=== PATIENT | female | born 1980 | race Caucasian/White ===

== ENCOUNTER → 2018-02-01 10:53 | Outpatient (CLI) | payer OTHER, SELFPAY ==
[2018-02-01 11:31] LABS: Add Manual Diff / Slide Review NO; Basophils Percent Auto 0.7 % (0-2); Eosinophils Percent Auto 1.7 % (2-4); Hematocrit 40.3 % (36-46); Hemoglobin 13.8 g/dL (12.0-16.0); Lymphocytes Percent Auto 25.6 % (25-40); Mean Corpuscular HGB Conc 34.3 % (30-36); Mean Corpuscular Hemoglobin 30.4 PG (26-34); Mean Corpuscular Volume 88.4 fL (80-100); Monocytes Percent Auto 7.2 % (3-14); Neutrophils Absolute Auto 4600 /uL (3000-5900); Neutrophils Percent Auto 64.8 % (50-75); Platelet Count 313 X10^3/uL (150-400); Red Blood Cell Count 4.55 X10^6/uL (4.0-5.2); Red Cell Distribution Width 12.5 % (11.6-14.8); White Blood Cell Count 7.1 X10^3/uL (4.5-11.0)
[2018-02-01 11:44] LABS: Alanine Aminotransferase 33 IU/L (9-52); Albumin 4.2 g/dL (3.5-5.0); Albumin Globulin Ratio 1.1 (1.0-2.8); Alkaline Phosphatase 98 U/L (38-126); Aspartate Aminotransferase 26 IU/L (14-36); BUN Creatinine Ratio 18.3 (6-22); Bilirubin Total 0.6 mg/dL (0.2-1.3); Calcium 9.6 mg/dL (8.4-10.2); Estimated Glomerular Filt Rate > 60.0 mL/min (>60); Globulin 3.7 g/dL (1.7-4.1); Glucose 102 mg/dL (70-100); HEMOLYSIS < 15 (0-50); Potassium 4.3 mmol/L (3.4-5.1); Sodium 139 mmol/L (137-145); Total Protein 7.9 g/dL (6.3-8.2)
[2018-02-01 12:32] LABS: TSH w/ Reflex to FT4 0.92 uIU/mL (0.47-4.68)
== END ==
PROVIDERS: PCP Family Medicine; Visit Provider Family Medicine
DX: I10 Essential (primary) hypertension (principal); R63.5 Abnormal weight gain
CPT/HCPCS: 36415; 80053; 84443; 85025

== ENCOUNTER 2018-03-31 20:41 | Emergency (ER) | payer OTHER, SELFPAY ==
--- NOTE | 2018-03-31 20:51 | PC.NURSE ---
pt calm and cooperative supine on stretcher. pt reports hx of ablation. denies sob or chest pain at this time. reports feeling a pounding chest.
[2018-03-31 20:52] VITALS: BP 137/76; PULSE 79; RESP 15; TEMP 36.7; O2SAT 99
--- NOTE | 2018-03-31 20:52 | ED.CHESTPAIN ---
HPI - Chest Pain General Chief Complaint: Chest Pain Stated Complaint: STATES HEAVY FAST HEART BEAT Time Seen by Provider: 03/31/18 20:52 Source: patient Mode of arrival: ambulatory Limitations: no limitations History of Present Illness HPI narrative: The patient developed chest heaviness and palpitations about 2 hr ago. She has a history of cardiac ablation at the age of 13. She has had issues with intermittent palpitations since then, but no pathologic diagnosis has been found despite Holters and other monitoring. She had an echo less than 2 years ago with no obvious pathology found. She describes her baseline heart rate as in the 50s. She is currently in the 80s. She has no headache, visual changes, or near syncopal type symptoms. She simply has chest discomfort. She does not smoke. She has morning coffee, but no additional coffee throughout the day or energy drinks. She has not been ill recently. She denies coughing. She denies hemoptysis. She has occasional peripheral edema, but no history of DVT. She denies dyspnea. Related Data Previous Rx's Medication Instructions Recorded bupropion HCl [Wellbutrin SR] 150 mg PO BID #60 tab 10/26/16 omeprazole 20 mg PO Q DAY #30 tab 10/26/16 metoprolol tartrate [Lopressor] 50 mg PO BID #60 tab 05/08/17 metoprolol tartrate [Lopressor] 50 mg PO BID #65 tab 05/23/17 azithromycin [Zithromax] 250 mg PO QDAY #6 tab 07/18/17 methylprednisolone 21 tab PO SEE INSTRUCTIONS #1 pac 07/18/17 spironolactone [Aldactone] 100 mg PO BID #180 tab 10/28/17 hydrochlorothiazide 25 mg tablet 25 mg PO DAILY #90 tab 01/31/18 potassium chloride 10 meq PO DAILY #30 tab 03/31/18 Allergies Allergy/AdvReac Type Severity Reaction Status Date / Time Sulfa (Sulfonamide Allergy Unknown Verified 03/31/18 21:16 Antibiotics) Review of Systems Review of Systems All systems reviewed & are unremarkable except as noted in HPI and below Constitutional Denies chills, Denies fever(s), Denies lethargy and Denies weakness ENT Ears, Nose, Mouth, and Throat: Denies change in voice, Denies vertigo, Denies dizziness, Denies neck pain and Denies sore throat Cardiovascular Reports chest pain, Denies syncope, Denies rapid heart rate, Reports irregular heart rhythm, Denies leg edema, Denies lightheadedness, Denies dyspnea and Denies dyspnea on exertion Respiratory Denies cough, Denies dyspnea, Denies dyspnea on exertion and Denies wheezing Gastrointestinal Gastrointestinal: Denies abdominal pain, Denies diarrhea, Denies nausea and Denies vomiting Musculoskeletal Denies joint swelling and Denies neck pain Integumentary/Breasts Denies erythema and Denies rash Neurologic Denies vertigo, Denies dizziness, Denies syncope and Denies weakness Allergic/Immunologic Denies wheezing [facility] Medical History Excess sun exposure (Chronic) Lower extremity edema (Chronic) Rosacea (01/02/16) Gastroesophageal reflux disease without esophagitis (Chronic 10/26/16) History of cardiac radiofrequency ablation (RFA) (Chronic 05/23/17) Surgical History History of cardiac radiofrequency ablation (RFA) Family History Mother Age: 67 Hypertension Cancer COPD (chronic obstructive pulmonary disease) Social History marital status: number of children: 3 household members: children lives independently: Yes occupational status: employed current occupational exposures/hazards: No Smoking Status: Never smoker Exam Initial Vital Signs Initial Vital Signs: Vital Signs Temperature 98.1 F 03/31/18 20:52 Pulse Rate 79 03/31/18 20:52 Respiratory Rate 15 03/31/18 20:52 Blood Pressure 137/76 H 03/31/18 20:52 Pulse Oximetry 99 03/31/18 20:52 Const General: cooperative and well developed Nutritional Appearance: well nourished Orientation: alert, awake and oriented x3 Eyes Conjunctivae: conjunctivae normal Neck Neck: No JVD Chest Chest: normal palpation of entire chest wall (mild left lateral rib tenderness) Resp Effort & Inspection: normal respiratory effort, able to speak in complete sentences, no respiratory distress and no use of accessory muscles Auscultation: clear to auscultation bilaterally, no rales, no rhonchi and no wheezes Cardio Rate: regular rate Rhythm: regular rhythm Heart Sounds: no click, no gallops, no murmurs and no rubs Pulses: normal peripheral pulses GI Inspection: non-distended Palpation: soft, no hepatosplenomegaly, No guarding, No pulsatile mass and No tender Auscultation: normal bowel sounds Skin General: no rashes or lesions noted, No jaundice and No petechiae Neuro General: alert, oriented x3 and no focal motor deficits Speech: speech normal Extrem General: no pedal edema, no calf tenderness and other (Normal lower extremity pulses.) Course Orders Ordered: ED Orders 03/31/18 21:19 Complete Blood Count AUTO DIFF Stat Comprehensive Metabolic Panel Stat D Dimer Stat Troponin & CK Cardiac Panel Stat Discontinued Medications Ibuprofen (Advil) 800 mg PO NOW ONE Stop: 03/31/18 21:05 Last Admin: 03/31/18 21:17 Dose: 800 mg Potassium Chloride (Potassium Chloride) 40 meq PO NOW ONE Stop: 03/31/18 22:32 Last Admin: 03/31/18 23:01 Dose: 40 meq Vital Signs - 8 hr 03/31/18 20:52 03/31/18 21:46 03/31/18 22:30 Temperature 98.1 F Pulse Rate 79 77 70 Respiratory Rate 15 25 H Blood Pressure [Right Arm] 137/76 H 115/60 115/83 H Pulse Oximetry 99 100 MDM - Chest Pain Lab Data Result diagrams: 03/31/18 21:19 03/31/18 21:19 Lab Results 03/31/18 03/31/18 03/31/18 Range/Units 21:19 21:19 21:19 WBC 11.8 H (4.5-11.0) X10^3/uL RBC 4.29 (4.0-5.2) X10^6/uL Hgb 12.8 (12.0-16.0) g/dL Hct 38.0 (36-46) % MCV 88.4 (80-100) fL MCH 29.8 (26-34) PG MCHC 33.7 (30-36) % RDW 13.1 (11.6-14.8) % Plt Count 287 (150-400) X10^3/uL Neut % (Auto) 75.4 H (50-75) % Lymph % (Auto) 17.9 L (25-40) % [place] % (Auto) 5.2 (3-14) % Eos % (Auto) 0.8 L (2-4) % Baso % (Auto) 0.7 (0-2) % Neut # (Auto) 8900 H (4547-2754) /uL D-Dimer 300 H (<230) ng/mL Sodium 138 (137-145) mmol/L Potassium 3.1 L (3.4-5.1) mmol/L Chloride 100 (98-107) mmol/L Carbon Dioxide 27 (22-32) mmol/L BUN 11 (7-17) mg/dL Creatinine 0.70 (0.52-1.04) mg/dL Estimated GFR > 60.0 (>60) mL/min BUN/Creatinine Ratio 15.7 (6-22) Glucose 142 H (70-100) mg/dL Calcium 9.7 (8.4-10.2) mg/dL Total Bilirubin 0.4 (0.2-1.3) mg/dL AST 30 (14-36) IU/L ALT 46 (9-52) IU/L Alkaline Phosphatase 81 (38-126) U/L Total Creatine Kinase 74 (30-135) U/L Troponin I < 0.012 (0.01-0.034) ng/mL Total Protein 7.4 (6.3-8.2) g/dL Albumin 4.0 (3.5-5.0) g/dL Globulin 3.4 (1.7-4.1) g/dL Albumin/Globulin Ratio 1.2 (1.0-2.8) ECG Data Attestation: I personally reviewed and interpreted this ECG as follows: (Normal sinus rhythm rate [address] T wave changes. All intervals are normal. No acute findings.) Discharge Plan Departure Patient Disposition: Home, Self-Care Clinical Impression: Hypokalemia, Heart palpitations Instructions: DI for Hypokalemia Activity Restrictions/Additional Instructions: I am going to prescribe a daily potassium supplement. I would also recommend a high potassium diet. If you have ongoing symptoms have your doctor recheck her potassium level. Return here as needed. Prescriptions: New potassium chloride 10 mEq tablet extended release 10 meq PO DAILY Qty: 30 RF: 0 No Action hydrochlorothiazide 25 mg tablet 25 mg PO DAILY Qty: 90 RF: 3 bupropion HCl [Wellbutrin SR] 150 MG tablet extended release 12 hr 150 mg PO BID Qty: 60 RF: 5 omeprazole 20 MG tablet,delayed release (DR/EC) 20 mg PO Q DAY Qty: 30 RF: 5 metoprolol tartrate [Lopressor] 50 MG tablet 50 mg PO BID Qty: 60 RF: 0 metoprolol tartrate [Lopressor] 50 MG tablet 50 mg PO BID Qty: 65 RF: 11 azithromycin [Zithromax] 250 MG tablet 250 mg PO QDAY Qty: 6 RF: 0 methylprednisolone 4 MG tablets,dose pack 21 tab PO SEE INSTRUCTIONS Qty: 1 RF: 0 spironolactone [Aldactone] 100 MG tablet 100 mg PO BID Qty: 180 RF: 1
[2018-03-31] MEDS: IBUPROFEN 400 MG TABLET 800 MG PO (21:17)
[2018-03-31 21:30] LABS: Add Manual Diff / Slide Review NO; Basophils Percent Auto 0.7 % (0-2); Eosinophils Percent Auto 0.8 % (2-4); Hemoglobin 12.8 g/dL (12.0-16.0); Lymphocytes Percent Auto 17.9 % (25-40); Mean Corpuscular HGB Conc 33.7 % (30-36); Mean Corpuscular Hemoglobin 29.8 PG (26-34); Mean Corpuscular Volume 88.4 fL (80-100); Monocytes Percent Auto 5.2 % (3-14); Neutrophils Absolute Auto 8900 /uL (3000-5900); Neutrophils Percent Auto 75.4 % (50-75); Platelet Count 287 X10^3/uL (150-400); Red Blood Cell Count 4.29 X10^6/uL (4.0-5.2); Red Cell Distribution Width 13.1 % (11.6-14.8); White Blood Cell Count 11.8 X10^3/uL (4.5-11.0)
[2018-03-31 21:38] LABS: D Dimer 300 ng/mL (<230)
[2018-03-31 21:39] LABS: Alanine Aminotransferase 46 IU/L (9-52); Albumin Globulin Ratio 1.2 (1.0-2.8); Alkaline Phosphatase 81 U/L (38-126); Aspartate Aminotransferase 30 IU/L (14-36); BUN Creatinine Ratio 15.7 (6-22); Bilirubin Total 0.4 mg/dL (0.2-1.3); Blood Urea Nitrogen 11 mg/dL (7-17); Calcium 9.7 mg/dL (8.4-10.2); Carbon Dioxide 27 mmol/L (22-32); Chloride 100 mmol/L (98-107); Creatine Kinase 74 U/L (30-135); Estimated Glomerular Filt Rate > 60.0 mL/min (>60); Globulin 3.4 g/dL (1.7-4.1); Glucose 142 mg/dL (70-100); HEMOLYSIS < 15 (0-50); Potassium 3.1 mmol/L (3.4-5.1); Sodium 138 mmol/L (137-145); Total Protein 7.4 g/dL (6.3-8.2)
[2018-03-31 21:46] VITALS: BP 115/60; PULSE 77; O2SAT 100
[2018-03-31 21:59] LABS: Troponin I < 0.012 ng/mL (0.01-0.034)
[2018-03-31 22:30] VITALS: BP 115/83; PULSE 70; RESP 25
[2018-03-31] MEDS: POTASSIUM CHLORIDE 20 MEQ/15 ML UDC 40 MEQ PO (23:01)
[2018-03-31 23:24] VITALS: BP 117/62; PULSE 66; RESP 16; O2SAT 100
== END 2018-03-31 23:32 | disposition home or self-care (01) ==
PROVIDERS: Emergency Provider Emergency Medicine; PCP Family Medicine
DX: E87.6 Hypokalemia (principal); R00.2 Palpitations
CPT/HCPCS: 80053; 82550; 82553; 84484; 85025; 85379; 93005; 99283; 99284

== ENCOUNTER → 2018-11-14 11:36 | Outpatient (CLI) | payer OTHER, SELFPAY ==
--- NOTE | 2018-11-14 11:39 | DI.MG.S_ITS ---
BILATERAL DIGITAL SCREENING MAMMOGRAM 3D/2D WITH CAD: 11/14/2018 CLINICAL: Baseline exam. Routine screening. No prior exams were available for comparison. There are scattered fibroglandular elements in both breasts. Current study was also evaluated with a Computer Aided Detection (CAD) system. No significant masses, calcifications, or other findings are seen in either breast. IMPRESSION: NEGATIVE There is no mammographic evidence of malignancy. A 1 year screening mammogram is recommended. This exam was interpreted at Station ID: [id number]. NOTE: For mammograms, a report in lay terms will be sent to the patient. Approximately 15% of breast malignancies will not be visualized mammographically. In the management of a palpable breast mass, a negative mammogram must not discourage biopsy of a clinically suspicious lesion. Electronically Signed By: Sandro woodson/alex:11/14/2018 12:33:36 letter sent: Normal Exam ACR BI-RADS Category 1: Negative 3341F
== END ==
PROVIDERS: PCP Student in an Organized Health Care Education/Training Program; Visit Provider Student in an Organized Health Care Education/Training Program
DX: Z12.31 Encounter for screening mammogram for malignant neoplasm of breast (principal)
CPT/HCPCS: 77063; 77067

== ENCOUNTER 2020-06-21 02:11 | Emergency (ER) | payer OTHER, SELFPAY ==
--- NOTE | 2020-06-21 02:13 | ED_ITS ---
HPI - Abdominal Pain General Chief Complaint: Abdominal Pain Stated Complaint: stomach pain nausea Time Seen by Provider: 06/21/20 02:13 Source: patient Mode of arrival: Ambulatory Limitations: no limitations History of Present Illness HPI narrative: 39-year-old female daily smoker with history of hypertension and GERD presents with a chief complaint of gradually worsening epigastric and left upper quadrant pain over the course of the day. She denies any provocation, palliation or radiation of her pain. She has had nausea and a few episodes of vomiting which did affect the severity of her pain at all. She is not dizzy nor weak or lightheaded. She denies any fever or chills. She denies any change in her diet or medications. She took an extra omeprazole this evening it did not help whatsoever. She states in some ways this feels like her reflux but she states this is more severe, it last longer and is in a slightly different region which makes her concerned that it is from something else. She denies any alcohol abuse and does not take NSAIDs MD complaint: abdominal pain Onset (ago): hour(s) Pain Consistency: constant Location: periumbilical and LUQ Severity: moderate Quality: cramping and aching Radiation: none Relieving factors: nothing Exacerbating factors: nothing Associated symptoms: nausea and vomiting Treatments prior to arrival: antacids Related Data Home Medications Medication Instructions Recorded Confirmed cetirizine 10 mg capsule 10 mg PO DAILY 01/30/19 01/06/20 Previous Rx's Medication Instructions Recorded citalopram 20 mg tablet 20 mg PO QDAY #90 tab 12/28/11 omeprazole 20 mg PO Q DAY #30 tab 10/26/16 metoprolol tartrate 50 mg tablet 50 mg PO BID #180 tab 12/17/19 cephalexin [Keflex] 500 mg PO QID 7 Days #28 cap 06/21/20 Allergies Allergy/AdvReac Type Severity Reaction Status Date / Time Sulfa (Sulfonamide Allergy Unknown Verified 01/06/20 09:55 Antibiotics) Review of Systems Constitutional Constitutional: Denies chills, Denies fatigue, Denies fever(s), Denies frequent falls, Denies lethargy and Denies weakness Eyes Eyes: Denies change in vision, Denies eye discharge, Denies irritation and Denies loss of vision ENT Ears, Nose, Mouth, and Throat: Denies change in voice, Denies dizziness, Denies neck pain, Denies sore throat and Denies throat swelling Cardiovascular Cardiovascular: Denies chest pain, Denies irregular heart rhythm, Denies lightheadedness, Denies palpitations, Denies dyspnea, Denies dyspnea on exertion and Denies orthopnea Respiratory Respiratory: Denies cough, Denies dyspnea, Denies dyspnea on exertion and Denies wheezing Gastrointestinal Gastrointestinal: Reports abdominal pain, Denies change in bowel habits, Denies diarrhea, Reports nausea and Reports vomiting Musculoskeletal Musculoskeletal: Denies neck pain and Denies numbness Integumentary/Breasts Skin/Breast: Denies pruritus, Denies erythema, Denies rash and Denies wounds Neurologic Neurologic: Denies behavioral changes, Denies confusion, Denies dizziness, Denies frequent falls, Denies loss of vision, Denies numbness and Denies weakness Psychiatric Psychiatric: Denies anxiety, Denies behavioral changes, Denies confusion, Denies depression, Denies homicidal ideation and Denies suicidal ideation Endocrine Endocrine: Denies fatigue, Denies flushing and Denies palpitations Hematologic/Lymphatic Hematologic/Lymphatic: Denies easy bruising Allergic/Immunologic Allergic/Immunologic: Denies urticaria, Denies throat swelling and Denies wheezing Patient History Medical History Acne (Chronic) Depression (Chronic) Excess sun exposure (Chronic) History of cardiac radiofrequency ablation (RFA) (Chronic 05/23/17) Hypertension (Chronic) Rosacea (Chronic 01/02/16) Surgical History History of cardiac radiofrequency ablation (RFA) (Resolved ~1994) Family History Mother Age: 70 Hypertension Cancer COPD (chronic obstructive pulmonary disease) Social History marital status: number of children: 3 household members: children lives independently: Yes occupational status: employed current occupational exposures/hazards: No Smoking Status: Never smoker alcohol intake: former Smoking Status: Never smoker Exam Narrative Exam Narrative: GENERAL: [39] year old patient appears stated age. Well- nourished, well-developed patient, in mild distress. HEAD: Atraumatic. Normocephalic. EYES: Pupils equal round and reactive. Extraocular motions intact. No scleral icterus. No injection or drainage. ENT: Nose without bleeding, purulent drainage. Throat without erythema, tonsillar hypertrophy or exudate. Airway patent. NECK: Trachea midline. Non tender CARDIOVASCULAR: Regular rate and rhythm without murmurs, gallops, or rubs. RESPIRATORY: Clear to auscultation. Breath sounds equal bilaterally. No wheezes, rales, or rhonchi. GASTROINTESTINAL: Abdomen soft, non-tender, nondistended. EXTREMITIES: No edema or joint tenderness. BACK: Nontender without deformity or crepitance. No flank tenderness. NEURO: AOx3. SKIN: No rash or erythema of visible areas Initial Vital Signs Initial Vital Signs: Vital Signs Temperature 98.1 F 06/21/20 02:20 Pulse Rate 82 06/21/20 02:20 Respiratory Rate 18 06/21/20 02:20 Blood Pressure 162/98 H 06/21/20 02:20 Pulse Oximetry 98 06/21/20 02:20 Course Course Course Narrative: Patient with significant epigastric pain improvement after taking the GI cocktail. Still some discomfort and left upper quadrant raising the question of the possibility that her UTIs actually an early pyelonephritis hence my decision to treat for a longer duration. Patient has had questions answered to her apparent satisfaction and understands her return precautions Orders Ordered: ED Orders 06/21/20 02:40 Complete Blood Count AUTO DIFF Stat Comprehensive Metabolic Panel Stat Lipase Stat 06/21/20 03:12 CT abdomen pelvis w con Stat 06/21/20 03:20 Urine Microscopic Stat 06/21/20 04:05 EKG-12 Lead Stat Discontinued Medications Cefazolin Sodium (Keflex 250 Mg Prepack) 1 bottle MISC SEEINSTR ONE Stop: 06/21/20 04:11 Al Hydrox/Mg Hydrox/Simethicone 20 ml/ Lidocaine HCl 15 ml 0 ml PO NOW ONE Stop: 06/21/20 03:12 Last Admin: 06/21/20 03:18 Dose: 35 ml Documented by: TERI Sodium Chloride (Normal Saline 0.9%) 1,000 mls @ 1,000 mls/hr IV BOLUS ONE Stop: 06/21/20 03:19 Last Infusion: 06/21/20 04:15 Dose: 0 mls/hr Documented by: Admin: 06/21/20 02:50 Dose: 1,000 mls/hr Documented by: TERI Vital Signs Vital signs: Vital Signs - 8 hr 06/21/20 02:20 06/21/20 02:41 06/21/20 03:00 Temperature 98.1 F Pulse Rate 82 69 63 Respiratory Rate 18 18 Blood Pressure 162/98 H 130/76 Pulse Oximetry 98 98 98 06/21/20 03:35 06/21/20 04:00 Temperature Pulse Rate 70 60 Respiratory Rate Blood Pressure 130/76 Pulse Oximetry 91 97 MDM - Abdominal Pain Lab Data Result diagrams: 06/21/20 02:40 06/21/20 02:40 Labs: Lab Results 06/21/20 06/21/20 06/21/20 Range/Units 02:40 02:40 03:20 WBC 10.6 (4.5-11.0) X10^3/uL RBC 4.37 (4.0-5.2) X10^6/uL Hgb 12.8 (12.0-16.0) g/dL Hct 38.6 (36-46) % MCV 88.3 (80-100) fL MCH 29.4 (26-34) PG MCHC 33.3 (30-36) % RDW 13.6 (11.6-14.8) % Plt Count 303 (150-400) X10^3/uL Neut % (Auto) 65.7 (50-75) % Lymph % (Auto) 23.5 L (25-40) % [place] % (Auto) 7.2 (3-14) % Eos % (Auto) 2.8 (2-4) % Baso % (Auto) 0.8 (0-2) % Neut # (Auto) 7000 (1616-5990) /uL Lymph # (Auto) 2500 (9950-4365) /uL [place] # (Auto) 800 (0-900) /uL Eos # (Auto) 300 (0-450) /uL Baso # (Auto) 100 (0-100) /uL Sodium 140 (137-145) mmol/L Potassium 3.4 (3.4-5.1) mmol/L Chloride 102 (98-107) mmol/L Carbon Dioxide 29 (22-32) mmol/L BUN 13 (7-17) mg/dL Creatinine 0.59 (0.52-1.04) mg/dL Estimated GFR > 60.0 (>60) mL/min BUN/Creatinine Ratio 22.0 (6-22) Glucose 130 H (70-100) mg/dL Calcium 9.8 (8.4-10.2) mg/dL Total Bilirubin 0.3 (0.2-1.3) mg/dL AST 29 (14-36) IU/L ALT 33 (<35) IU/L Alkaline Phosphatase 101 (38-126) U/L Total Protein 8.1 (6.3-8.2) g/dL Albumin 4.2 (3.5-5.0) g/dL Globulin 3.9 (1.7-4.1) g/dL Albumin/Globulin Ratio 1.1 (1.0-2.8) Lipase 111 (23-300) U/L Urine RBC 10-30/hpf H (0-5/HPF) Urine WBC 30-100/hpf H (0-5/HPF) Ur Squamous Epith Cells 10-30 /hpf H (0-5/HPF) Urine Bacteria Many (>30) H (None) Urine Mucus 2+ H (Negative) Ur Culture Indicated? Cult not indicated Point of care testing: Urine Dip Bedside Urine Glucose Negative Bedside Urine Bilirubin - Negative Bedside Urine Ketone - Negative Urine Specific [place] 1.030 Bedside Urine Occult Blood ++ Bedside Urine pH 6.0 Bedside Urine Protein - Negative Bedside Urine Urobilinogen - Negative Bedside Urine Nitrite - Negative Bedside Urine Leukocytes +/- [address] scan - abdomen/pelvis: Radiologist's Impression: No evidence of colitis, diverticulitis, or bowel obstruction, uropathy, or appendicitis Discharge Plan Departure Patient Disposition: Home Clinical Impression: Acute epigastric pain UTI (urinary tract infection) Qualifiers: Urinary tract infection type: acute pyelonephritis Qualified Code(s): N10 - Acute pyelonephritis Instructions: DI for Urinary Tract Infection (UTI), DI for Epigastric Pain Activity Restrictions/Additional Instructions: *You have been diagnosed with [ epigastric pain likely secondary to GERD and UTI with possible kidney involvement] *What to do: *Take medications as directed: Please take Omeprazole morning and night for the next week. A prescription for antibiotics was sent to [facility] *Follow up with your primary care provider in 2-3 days, call for an appointment. Let them know you were seen in the Emergency Department and that we ask that you be seen in follow up *Return to ER if you should have any new, worsening or concerning symptoms Prescriptions: New cephalexin [Keflex] 500 mg capsule 500 mg PO QID 7 Days Qty: 28 RF: 0 No Action omeprazole 20 MG tablet,delayed release (DR/EC) 20 mg PO Q DAY Qty: 30 RF: 5 metoprolol tartrate [Lopressor] 50 mg tablet 50 mg PO BID Qty: 180 RF: 1 Zyrtec 10 mg capsule 10 mg PO DAILY RF: 0 citalopram 20 mg tablet 20 mg PO QDAY Qty: 90 RF: 1 Referrals: Dennis Silva MD [Primary Care Provider] -
[2020-06-21 02:20] VITALS: BP 162/98; PULSE 82; RESP 18; TEMP 36.7; O2SAT 98; BMI 36.6
[2020-06-21 02:41] VITALS: PULSE 69; O2SAT 98
[2020-06-21] MEDS: SODIUM CHLORIDE 0.9% 1,000 ML 1000 ML IV (02:50)
[2020-06-21 02:52] LABS: Add Manual Diff / Slide Review NO; Basophils Absolute Auto 100 /uL (0-100); Basophils Percent Auto 0.8 % (0-2); Eosinophils Absolute Auto 300 /uL (0-450); Eosinophils Percent Auto 2.8 % (2-4); Hematocrit 38.6 % (36-46); Hemoglobin 12.8 g/dL (12.0-16.0); Lymphocytes Absolute Auto 2500 /uL (1100-4500); Lymphocytes Percent Auto 23.5 % (25-40); Mean Corpuscular HGB Conc 33.3 % (30-36); Mean Corpuscular Hemoglobin 29.4 PG (26-34); Mean Corpuscular Volume 88.3 fL (80-100); Monocytes Absolute Auto 800 /uL (0-900); Monocytes Percent Auto 7.2 % (3-14); Neutrophils Absolute Auto 7000 /uL (1500-7000); Neutrophils Percent Auto 65.7 % (50-75); Platelet Count 303 X10^3/uL (150-400); Red Blood Cell Count 4.37 X10^6/uL (4.0-5.2); Red Cell Distribution Width 13.6 % (11.6-14.8); White Blood Cell Count 10.6 X10^3/uL (4.5-11.0)
[2020-06-21 03:00] VITALS: BP 130/76; PULSE 63; RESP 18; O2SAT 98
[2020-06-21 03:00] LABS: Alanine Aminotransferase 33 IU/L (<35); Albumin 4.2 g/dL (3.5-5.0); Albumin Globulin Ratio 1.1 (1.0-2.8); Alkaline Phosphatase 101 U/L (38-126); Aspartate Aminotransferase 29 IU/L (14-36); Bilirubin Total 0.3 mg/dL (0.2-1.3); Blood Urea Nitrogen 13 mg/dL (7-17); Calcium 9.8 mg/dL (8.4-10.2); Carbon Dioxide 29 mmol/L (22-32); Chloride 102 mmol/L (98-107); Estimated Glomerular Filt Rate > 60.0 mL/min (>60); Globulin 3.9 g/dL (1.7-4.1); Glucose 130 mg/dL (70-100); HEMOLYSIS < 15 (0-50); Lipase 111 U/L (23-300); Potassium 3.4 mmol/L (3.4-5.1); Sodium 140 mmol/L (137-145); Total Protein 8.1 g/dL (6.3-8.2)
--- NOTE | 2020-06-21 03:12 | DI.CT.S_ITS ---
PROCEDURE: CT ABDOMEN PELVIS W CON INDICATIONS: severe epigastric and left upper abdominal pain with vomiting TECHNIQUE: After the administration of intravenous contrast, 5 mm thick sections acquired from the diaphragm to the symphysis. 5 mm coronal and sagittal reformats were acquired. For radiation dose reduction, the following was used: automated exposure control, adjustment of mA and/or kV according to patient size. COMPARISON: None. FINDINGS: Image quality: Excellent. ABDOMEN: Lung bases: Lung bases are clear. Heart size is normal. Solid organs: Liver is normal in size and enhancement. Moderate diffuse hepatic steatosis. Gallbladder is unremarkable. Biliary system is non dilated. Pancreas enhances normally. Spleen is normal in size and enhancement. No adrenal nodules. Kidneys demonstrate normal size and enhancement, without hydronephrosis. Peritoneum and bowel: Bowel loops demonstrate normal wall thickness and caliber. No free fluid or air. Normal appendix. Nodes and vessels: No retroperitoneal or mesenteric adenopathy by size criteria. Aorta and inferior vena cava are normal in size. Miscellaneous: There is a fat-containing umbilical hernia without acute inflammation. PELVIS: Genitourinary: Bladder wall thickness is normal. Reproductive organs appear unremarkable as visualized. Likely involuting corpus luteal cyst on the right. Miscellaneous: No inguinal hernias or adenopathy. Bones: No suspicious bony lesions. No acute vertebral body compression fractures. IMPRESSION: 1. CT abdomen and pelvis without acute abnormality to explain patient's epigastric/left upper abdominal pain. 2. No evidence for colitis, diverticulitis, bowel obstruction, obstructive uropathy, or acute appendicitis. 3. Diffuse hepatic steatosis. No significant discrepancy with the fast food shift lead radiology preliminary report. Dictated by: Sandro Desir M.D. on 06/21/2020 at 7:21 Approved by: Sandro Desir M.D. on 06/21/2020 at 7:30
[2020-06-21] MEDS: MAG HYDROX/ALUMINUM/SIMETH SUS 20 ML, LIDOCAINE VISCOUS 2% 15 ML PO (03:18)
--- NOTE | 2020-06-21 03:31 | PC.NURSE ---
Pt reports pain is improving after GI cocktail
[2020-06-21 03:35] VITALS: PULSE 70; O2SAT 91
[2020-06-21 03:42] LABS: Bacteria Urine Many (>30); RBC Urine 10-30/HPF (0-5/HPF); Squamous Epithelial Cell Urine 10-30 /HPF (0-5/HPF)
[2020-06-21 03:43] LABS: Culture Indicated Urine Cult Not Indicated; Mucus Urine 2+ (Negative); WBC Urine 30-100/HPF (0-5/HPF)
[2020-06-21 04:00] VITALS: BP 130/76; PULSE 60; O2SAT 97
[2020-06-21] MEDS: cephALEXin 250 MG PREPACK 1 BOTTLE MISC (04:27)
== END 2020-06-21 04:34 | disposition home or self-care (01) ==
PROVIDERS: Emergency Provider Emergency Medicine; PCP Student in an Organized Health Care Education/Training Program
DX: R10.13 Epigastric pain (principal); N10 Acute pyelonephritis; N39.0 Urinary tract infection, site not specified; R11.2 Nausea with vomiting, unspecified; I10 Essential (primary) hypertension; K21.9 Gastro-esophageal reflux disease without esophagitis
CPT/HCPCS: 36415; 74177; 80053; 81003; 81015; 83690; 85025; 93005; 96360; 99284; Q9967

== ENCOUNTER → 2020-07-24 09:07 | Outpatient (CLI) | payer OTHER, SELFPAY ==
[2020-07-25 17:12] LABS: COVID19 Sendout Not Detected (Not Detect)
== END ==
PROVIDERS: PCP Student in an Organized Health Care Education/Training Program; Visit Provider Physician Assistant
DX: Z11.59 Encounter for screening for other viral diseases (principal)
CPT/HCPCS: 87635

== ENCOUNTER → 2020-08-15 16:37 | Outpatient (CLI) | payer OTHER, SELFPAY ==
[2020-08-15 17:37] LABS: Appearance Urine UA CLEAR; Bilirubin Urine UA NEGATIVE (NEGATIVE); Color Urine UA YELLOW; Glucose Urine UA NEGATIVE (Negative); Ketones Urine UA NEGATIVE (NEGATIVE); Leukocyte Esterase Urine UA 1+ (NEGATIVE); Nitrite Urine UA NEGATIVE (Negative); Occult Blood Urine UA TRACE-INTACT (Negative); Protein Urine UA NEGATIVE (Negative); Specific Gravity Urine UA 1.015 (1.000-1.035); Urobilinogen Urine UA 0.2 E.U./dL (0.2)
[2020-08-15 17:43] LABS: Amorphous Sediment Urine 1+; RBC Urine 0-1/HPF (0-5/HPF); Squamous Epithelial Cell Urine 1-5 /HPF (0-5/HPF); WBC Urine 5-10/HPF (0-5/HPF)
[2020-08-15 17:44] LABS: Bacteria Urine Moderate (10-30); Culture Indicated Urine Specimen Cultured
== END ==
PROVIDERS: PCP Student in an Organized Health Care Education/Training Program; Referring Provider Registered Nurse; Visit Provider Registered Nurse
DX: M54.9 Dorsalgia, unspecified (principal); Z87.440 Personal history of urinary (tract) infections
CPT/HCPCS: 81001; 87086

== ENCOUNTER → 2022-01-19 10:56 | Outpatient (CLI) | payer OTHER, SELFPAY ==
--- NOTE | 2022-01-19 10:59 | DI.MG.S_ITS ---
BILATERAL DIGITAL SCREENING MAMMOGRAM 3D/2D WITH CAD: 01/19/2022 CLINICAL: Routine screening. Comparison is made to exam dated: 11/14/2018 mammogram - [facility]. There are scattered fibroglandular elements in both breasts. Current study was also evaluated with a Computer Aided Detection (CAD) system. No significant masses, calcifications, or other findings are seen in either breast. There has been no significant interval change. IMPRESSION: NEGATIVE There is no mammographic evidence of malignancy. A 1 year screening mammogram is recommended. This exam was interpreted at Station ID: [id number]. NOTE: For mammograms, a report in lay terms will be sent to the patient. Approximately 15% of breast malignancies will not be visualized mammographically. In the management of a palpable breast mass, a negative mammogram must not discourage biopsy of a clinically suspicious lesion. Electronically Signed By: Sandro woodson/alex:01/19/2022 13:11:47 letter sent: Normal Exam ACR BI-RADS Category 1: Negative 3341F
== END ==
PROVIDERS: Referring Provider Family Medicine; Visit Provider Family Medicine
DX: Z12.31 Encounter for screening mammogram for malignant neoplasm of breast (principal)
CPT/HCPCS: 77063; 77067

== ENCOUNTER → 2023-12-02 15:45 | Outpatient (CLI) | payer OTHER, SELFPAY ==
--- NOTE | 2023-12-02 | DI.MG.S_ITS ---
BILATERAL DIGITAL SCREENING MAMMOGRAM 3D/2D WITH CAD: 12/02/2023 CLINICAL: Routine screening. Comparison is made to exams dated: 01/19/2022 mammogram and 11/14/2018 mammogram - . There are scattered areas of fibroglandular density in both breasts (category b / 25%-50% glandular tissue). Current study was also evaluated with a Computer Aided Detection (CAD) system. No significant masses, calcifications, or other findings are seen in either breast. There has been no significant interval change. IMPRESSION: NEGATIVE There is no mammographic evidence of malignancy. A 1 year screening mammogram is recommended. Based on the Tyrer Cuzick model (a risk assessment model) the patient's lifetime risk is 7.1% and her 10 year risk is 1.3%. According to the ACR, ACS, and NCCN guidelines, an annual breast MRI exam along with mammogram is recommended if the patient's lifetime risk is 20% or greater. This exam was interpreted at Station ID: [id number]. NOTE: For mammograms, a report in lay terms will be sent to the patient. Approximately 15% of breast malignancies will not be visualized mammographically. In the management of a palpable breast mass, a negative mammogram must not discourage biopsy of a clinically suspicious lesion. Electronically Signed By: Grant diaz/alex:12/03/2023 12:07:20 letter sent: Normal Exam ACR BI-RADS Category 1: Negative 3341F
== END ==
LOC: MAMMO 15:46
PROVIDERS: PCP Family Medicine; Referring Provider Family Medicine; Visit Provider Family Medicine
DX: Z12.31 Encounter for screening mammogram for malignant neoplasm of breast (principal); R92.323 Mammographic fibroglandular density, bilateral breasts
CPT/HCPCS: 77063; 77067

== ENCOUNTER → 2024-01-31 14:43 | Outpatient (CLI) | payer OTHER, SELFPAY ==
--- NOTE | 2024-01-31 14:45 | DI.RAD.S_ITS ---
PROCEDURE: XR HAND LT MIN 3V INDICATIONS: Swollen, painful 5th PIP joint TECHNIQUE: 3 views of the hand(s) acquired. COMPARISON: None. FINDINGS: Bones: No fractures or dislocations. Carpal bones are normally aligned. No suspicious bony lesions. Soft tissues: No suspicious soft tissue calcifications. IMPRESSION: No acute left hand fracture or dislocation. No gross bony erosive changes. Dictated by: Vinay Gann M.D. on 01/31/2024 at 15:51 Approved by: Vinay Gann M.D. on 01/31/2024 at 15:57
== END ==
PROVIDERS: PCP Family Medicine; Referring Provider Nurse Practitioner Family; Visit Provider Nurse Practitioner Family
DX: M79.645 Pain in left finger(s) (principal)
CPT/HCPCS: 73130

== ENCOUNTER 2024-03-17 01:31 | Emergency (ER) | payer OTHER, SELFPAY ==
[2024-03-17 01:48] VITALS: BP 159/77; PULSE 72; RESP 16; TEMP 36.8; O2SAT 99; BMI 29.1
== END 2024-03-17 02:51 | disposition left against medical advice (07) ==
PROVIDERS: Emergency Provider Emergency Medicine; PCP Family Medicine
DX: R51.9 Headache, unspecified (principal)
CPT/HCPCS: 99281

== ENCOUNTER → 2024-06-19 09:12 | Outpatient (CLI) | payer OTHER, SELFPAY ==
[2024-06-19 10:56] LABS: Add Manual Diff / Slide Review NO; Basophils Absolute Auto 0 /uL (0-100); Basophils Percent Auto 0.5 % (0-2); Eosinophils Absolute Auto 100 /uL (0-450); Eosinophils Percent Auto 2.2 % (2-4); Hemoglobin 14.1 g/dL (12.0-16.0); Lymphocytes Absolute Auto 1600 /uL (1100-4500); Lymphocytes Percent Auto 27.9 % (25-40); Mean Corpuscular HGB Conc 34.5 % (30-36); Mean Corpuscular Hemoglobin 31.1 PG (26-34); Mean Corpuscular Volume 90.2 fL (80-100); Monocytes Absolute Auto 400 /uL (0-900); Monocytes Percent Auto 7.5 % (3-14); Neutrophils Absolute Auto 3600 /uL (1500-7000); Neutrophils Percent Auto 61.9 % (50-75); Platelet Count 310 X10^3/uL (150-400); Red Blood Cell Count 4.54 X10^6/uL (4.0-5.2); Red Cell Distribution Width 13.8 % (11.6-14.8); White Blood Cell Count 5.9 X10^3/uL (4.5-11.0)
[2024-06-19 11:10] LABS: HEMOLYSIS < 15 (0-50); Iron 186 ug/dL (37-170)
[2024-06-19 11:24] LABS: Total Iron Binding Capacity 253 ug/dL (265-497); Transferrin 193 mg/dL (206-381)
[2024-06-19 11:48] LABS: Ferritin 699 ng/mL (6-137)
[2024-06-19 11:56] LABS: Percent Iron Saturation 74 % (15-50)
== END ==
PROVIDERS: PCP Family Medicine; Referring Provider Nurse Practitioner; Visit Provider Nurse Practitioner
DX: D50.9 Iron deficiency anemia, unspecified (principal)
CPT/HCPCS: 36415; 82728; 83540; 83550; 85025

== ENCOUNTER → 2025-07-17 11:24 | Outpatient (CLI) | payer OTHER, SELFPAY ==
--- NOTE | 2025-07-17 11:25 | DI.MG.S_ITS ---
MM screening mammo BI: 07/17/2025. BI-RADS: 1 CLINICAL: 44-year old female for bilateral screening mammogram. Tyrer-Cuzick lifetime risk of 4.2%. No personal or first-degree family history of breast cancer. PRIOR EXAMS 12/02/2023, 01/19/2022, 11/14/2018. MAMMOGRAPHY TECHNIQUE: 2D and 3D (tomosynthesis) digital mammographic views obtained, with additional images as needed for full coverage. Current study was also evaluated with a Computer Aided Detection (CAD) system. DENSITY A. The breasts are almost entirely fatty. MAMMOGRAPHY FINDINGS Bilateral: No suspicious mass, asymmetry, microcalcification, or other abnormality seen. IMPRESSION: * No evidence of malignancy. RECOMMENDATIONS Bilateral * Annual screening mammography. OVERALL ASSESSMENT CATEGORY BI-RADS-1: Negative. [employer] recommends annual screening mammography beginning at age 40 for women with average risk of breast cancer. ELECTRONICALLY SIGNED: Sandro Desir M.D. on 07/19/2025 at 08:08:33 AM PT Interpreting Station ID: [id number]
== END ==
LOC: MAMMO 11:25
PROVIDERS: PCP Family Medicine; Referring Provider Family Medicine; Visit Provider Family Medicine
DX: Z12.31 Encounter for screening mammogram for malignant neoplasm of breast (principal); R92.313 Mammographic fatty tissue density, bilateral breasts
CPT/HCPCS: 77063; 77067